=== PATIENT | female | born 1935 | race Caucasian/White ===

== ENCOUNTER 2020-03-18 11:10 | Inpatient (IN) | payer MEDICARE, OTHER ==
[~2020-03-18] VITALS: Ht 160 cm; Wt 81.6 kg
--- NOTE | 2020-03-18 11:50 | NUR ---
patient came in to the er c/o chest pain and dizziness since last night. On room air, breathing evenly and unlabored. Connected to the monitor and pulse ox. kept comfortable, will continue to monitor accordingly.
[2020-03-18] MEDS ORDERED: MORPHINE SULFATE INJ 2 MG/ML DISP.SYRIN ONE (12:59)
[2020-03-18] MEDS ORDERED: ONDANSETRON HCL/PF 4 MG/2 ML VIAL ONE (12:59)
[2020-03-18] MEDS ORDERED: ONDANSETRON HCL/PF 4 MG/2 ML VIAL IVP ONE (13:00)
[2020-03-18] MEDS ORDERED: MORPHINE SULFATE INJ 2 MG/ML DISP.SYRIN IV ONE (13:00)
[2020-03-18] MEDS ORDERED: IV NS 0.9% 1,000 ML BAG IV ONE (13:00)
[2020-03-18 13:14] LABS: BASOPHILS # (AUTO) 0.1 /CMM (0.0-0.2); BASOPHILS % (AUTO) 0.7 % (0.0-2.0); EOSINOPHILS % (AUTO) 3.2 % (0.0-6.0); HEMATOCRIT 42 % (33-45); HEMOGLOBIN 13.8 g/dL (11.5-14.8); LYMPHOCYTES # (AUTO) 2.1 /CMM (0.8-4.8); LYMPHOCYTES % (AUTO) 24.9 % (20.0-44.0); MEAN CORPUSCULAR HGB CONC 33 g/dl (31.0-36.0); MEAN CORPUSCULAR VOLUME 85 fL (82-100); MONOCYTES # (AUTO) 0.8 /CMM (0.1-1.30); MONOCYTES % (AUTO) 9.5 % (2.0-12.0); NEUTROPHILS # (AUTO) 5.2 /CMM (1.8-8.9); NEUTROPHILS % (AUTO) 61.7 % (43.0-81.0); PLATELET COUNT (AUTO) 267 /CMM (150-450); RED BLOOD CELL COUNT(AUTO) 4.91 MIL/uL (4.0-5.2); WHITE BLOOD COUNT (AUTO) 8.4 K/uL (4.3-11.0)
[2020-03-18 13:18] LABS: CALCIUM, SERUM 9.3 mg/dL (8.5-10.1); CARBON DIOXIDE 31 mmol/L (21-32); CHLORIDE 102 mmol/L (98-107); CREATININE 1.2 mg/dL (0.6-1.3); GLUCOSE 86 mg/dL (74-106); POTASSIUM 3.6 mmol/L (3.5-5.1); SODIUM SERUM 139 mmol/L (136-145); UREA NITROGEN, BLOOD 24 mg/dL (7-18)
[2020-03-18 13:43] LABS: ALBUMIN 3.7 g/dL (3.4-5.0); BILIRUBIN,DIRECT 0.1 mg/dL (0.0-0.2); BILIRUBIN,TOTAL 0.4 mg/dL (0.2-1.0); TOTAL PROTEIN, SERUM 7.2 g/dL (6.4-8.2)
--- NOTE | 2020-03-18 13:44 | NUR ---
wheeled patient via gurney to ct scan
--- NOTE | 2020-03-18 13:56 | NUR ---
patient came back from ct
--- NOTE | 2020-03-18 13:59 | NUR ---
CALLED NURSING SUP FOR TELE BED.
[2020-03-18] MEDS ORDERED: CLOP75TA15 PO (14:09)
[2020-03-18] MEDS ORDERED: ATOR20TA PO (14:10)
[2020-03-18] MEDS ORDERED: ICOS1CAP PO (14:11)
[2020-03-18] MEDS ORDERED: CARV3.122 PO (14:14)
[2020-03-18] MEDS ORDERED: TRIA1TAB3 PO (14:14)
[2020-03-18] MEDS ORDERED: IRBE150T28 PO (14:14)
--- NOTE | 2020-03-18 14:15 | NUR ---
NURSING SUP GAVE TELE BED 304-1. AKHIL IS THE NURSE.
[2020-03-18] MEDS ORDERED: FAMO-131 PO (14:19)
[2020-03-18] MEDS ORDERED: ASCO-352 PO (14:19)
[2020-03-18] MEDS ORDERED: BISA-79 PO (14:19)
[2020-03-18] MEDS ORDERED: BIOT5000 PO (14:19)
[2020-03-18] MEDS ORDERED: VITA400C71 PO (14:19)
--- NOTE | 2020-03-18 14:19 | NUR ---
report given to Devika DAVIDSON for steffen.
[2020-03-18] MEDS ORDERED: HYDR-4354 PO (14:23)
[2020-03-18] MEDS ORDERED: VITAMIN D PO (14:23)
[2020-03-18] MEDS ORDERED: FOLIC ACID PO (14:27)
[2020-03-18 14:52] VITALS: BP 136/68
[2020-03-18] MEDS ORDERED: MAG HYDROX/AL HYDROX/SIMETH 30 ML UDC PO PRN (15:00)
[2020-03-18] MEDS ORDERED: ACETAMINOPHEN 325 MG TABLET PO PRN (15:00)
[2020-03-18] MEDS ORDERED: ENOXAPARIN SODIUM 40 MG/0.4 ML DISP.SYRIN SQ SCH (15:00)
[2020-03-18] MEDS ORDERED: BISACODYL (5 MG) 5 MG TABLET.DR PO PRN (15:00)
[2020-03-18] MEDS ORDERED: MAGNESIUM HYDROXIDE 30 ML UDC PO PRN (15:00)
[2020-03-18] MEDS ORDERED: ONDANSETRON HCL/PF 4 MG/2 ML VIAL IVP PRN (15:00)
[2020-03-18] MEDS ORDERED: MORPHINE SULFATE INJ 2 MG/ML DISP.SYRIN IV PRN (15:00)
[2020-03-18] MEDS ORDERED: NITROGLYCERIN 0.4 MG/TAB BOTTLE SL PRN (15:00)
[2020-03-18] MEDS ORDERED: HYDROCODONE/APAP 10/325MG TABLET PO PRN (15:00)
[2020-03-18] MEDS ORDERED: Z GUARD REMEDY 2 OZ OINT TP PRN (15:00)
[2020-03-18] MEDS ORDERED: ZOLPIDEM TARTRATE 5 MG TABLET PO PRN (15:00)
--- NOTE | 2020-03-18 15:12 | NUR ---
wheeled patient via gurney accompanied by RN and emt in no distress, RN at bedside to assume care.
[2020-03-18] MEDS ORDERED: ENOXAPARIN SODIUM 30 MG/0.3 ML DISP.SYRIN SQ SCH (15:30)
[2020-03-18] MEDS: CARVEDILOL 3.125 MG TABLET PO SCH (16:27)
[2020-03-18] MEDS: IV NS 0.9% 1,000 ML IV PRN (16:28)
--- NOTE | 2020-03-18 18:14 | NUR ---
WIND FIELD MANAGER END OF SHIFT SUMMARY NOTE PT ARRIVED TO TELE UNIT IN STABLE CONDITION VIA GURNEY. PT ABLE TO AMBULATE FROM GURNEY TO BED. PT IS A/OX3, AFEBRILE. FARSI SPEAKING. OBTAINED VERBAL CONSENT W/ 2RNS WITH SON LEONID FOR CTCA. CONSENT PLACED IN CHART. RESPIRATIONS ARE EVEN AND UNLABORED, NOT IN ANY ACUTE DISTRESS NOTED. PT DENIES ANY CHEST PAIN AT THIS TIME, NO C/O SOB. ABDOMEN IS SOFT AND NONDISTENDED, BOWEL SOUNDS ARE PRESENT IN ALL 4 QUADRANTS UPON AUSCULTATION. TOLERATING PO W/ NO N/V. PIV TO LAC 18G INTACT, NO INFILTRATION NOTED, DRESSING CDI. SKIN CDI. ALL NEEDS MET AND RENDERED. SAFETY MEASURES ARE IN PLACE. CALL LIGHT IS LEFT WITHIN REACH. WILL MONITOR AND CONTINUE POC.
[2020-03-18 20:00] VITALS: BP 125/58
--- NOTE | 2020-03-18 20:00 | NUR ---
PICK PULLING MACHINE TENDER: RECEIVED REPORT FROM AKHIL DAVIDSON. PT CALM AND COMFORTABLE, PLEASANT, PT A/O X3 FARSI SPEAKING, ON RA RESPIRATIONS EVEN AND UNLABORED. IV ACCESS ON LEFT FA G 18 PATENT AND FLUSHING WELL, INFUSING WITH NS AT 100ML/HR. PT TELE MONITORING SINUS CESAR HR 56. PT DENIES ANY CHEST PAIN OR DISCOMFORT AT THIS TIME. PT FOR CT ANGIO 3D IN AM, CONSENT SECURED BY DIRK RN. ALL COMMUNICATIONS TRANSLATED IN FARSI WITH HELP OF PT'S SON LEONID. SAFETY PRECAUTIONS FOR FALL INITIATED, CALL LIGHT IN REACH, WILL CONTINUE MONITORING PT.
--- NOTE | 2020-03-18 21:22 | NUR ---
RN NOTES: CONTACTED PT'S SON SALEEM [phone], EXPLAINED TO SON ABOUT PLAN OF CARE, MADE AWARE OF PT BRING NPO P MN IN PREP FOR CT ANGIO IN AM, ALSO MEDICATION TO BE TAKEN TONIGHT. SON EXPLAINED TO PT USING FARSI.
[2020-03-18] MEDS ORDERED: ATORVASTATIN 10 MG TABLET PO SCH (22:00)
[2020-03-19] VITALS: BP 106/45
[2020-03-19] MEDS: IV NS 0.9% 1,000 ML IV PRN ×2 (00:44→11:20)
[2020-03-19 04:27] VITALS: BP 155/77
--- NOTE | 2020-03-19 06:13 | NUR ---
rn notes: contrast questionnaires completed, with help of pt's son. witnessed by rn stephie.
[2020-03-19 06:32] LABS: BASOPHILS # (AUTO) 0.1 /CMM (0.0-0.2); HEMATOCRIT 39 % (33-45); HEMOGLOBIN 12.6 g/dL (11.5-14.8); LYMPHOCYTES # (AUTO) 2.3 /CMM (0.8-4.8); LYMPHOCYTES % (AUTO) 36.9 % (20.0-44.0); MEAN CORPUSCULAR HGB CONC 33 g/dl (31.0-36.0); MEAN CORPUSCULAR VOLUME 87 fL (82-100); MONOCYTES # (AUTO) 0.6 /CMM (0.1-1.30); MONOCYTES % (AUTO) 9.5 % (2.0-12.0); NEUTROPHILS # (AUTO) 2.9 /CMM (1.8-8.9); NEUTROPHILS % (AUTO) 46.6 % (43.0-81.0); PLATELET COUNT (AUTO) 227 /CMM (150-450); RED BLOOD CELL COUNT(AUTO) 4.47 MIL/uL (4.0-5.2); WHITE BLOOD COUNT (AUTO) 6.3 K/uL (4.3-11.0)
[2020-03-19 06:35] VITALS: BP 155/77
[2020-03-19 07:27] LABS: CALCIUM, SERUM 8.4 mg/dL (8.5-10.1); CREATININE 1.1 mg/dL (0.6-1.3); MAGNESIUM 2.1 mg/dL (1.8-2.4); PHOSPHORUS 4.7 mg/dL (2.5-4.9); POTASSIUM 3.6 mmol/L (3.5-5.1)
[2020-03-19 07:31] LABS: THYROID STIMULATING HORMONE 1.307 uIU/mL (0.358-3.74)
--- NOTE | 2020-03-19 07:32 | NUR ---
end of shift report: pt denies any chest pain or discomfort throughout the shift. pt able to sleep approximately 8hrs without help of any sleeping medication. all due meds administered. pt npo started mn, for ct angio heart, consent secured attached in chart. iv contrast questionnaire completed with help of son. pt continent, ambulates with assistance. remains tele monitoring sinus aleisha hr 58. iv access remains patent and flushing well, infusing with ns at 100ml/hr, no s/s of iv infiltration noted. vs remains stable, needs attended. safety precautions for fall remains engaged, call light in reach, will endorse to day rn for continuity of care.
[2020-03-19 08:00] VITALS: BP 158/67
[2020-03-19] MEDS ORDERED: MAXZIDE TABLET 1 UDTAB TABLET PO SCH (09:00)
[2020-03-19] MEDS ORDERED: IRBESARTAN (150MG) 150 MG TABLET PO SCH (09:00)
[2020-03-19] MEDS ORDERED: CLOPIDOGREL BISULFATE 75 MG TABLET PO SCH (09:00)
[2020-03-19] MEDS ORDERED: FAMOTIDINE (20 MG) 20 MG TABLET PO SCH (09:00)
[2020-03-19] MEDS ORDERED: ASPIRIN EC 81 MG TABLET.DR PO SCH (09:00)
[2020-03-19] MEDS ORDERED: ASCORBIC ACID 500 MG TABLET PO SCH (09:00)
[2020-03-19] MEDS: CARVEDILOL 3.125 MG TABLET PO SCH (09:41)
[2020-03-19] MEDS ORDERED: IV NS 0.9% 250 ML IV ONE (12:02)
[2020-03-19] MEDS ORDERED: IOHEXOL-350 100 ML VIAL IV ONE ×2 (12:02→12:26)
[2020-03-19 12:25] VITALS: BP 159/67
--- NOTE | 2020-03-19 12:27 | NUR ---
ICU/RN: Pt s/p CTA; pt tolerated procedure well. No AE noted. No metoprolol administered dt HR within parameters. Administered nitro x1 SL. Post CTA VS: 143/67, HR 63, sinus rhythm on tele. Transferred back to room in stable condition. Report given to RN for RENAN.
[2020-03-19] MEDS ORDERED: METOPROLOL TARTRATE INJ 5 MG/5 ML AMPUL IVP ONE (12:30)
[2020-03-19] MEDS ORDERED: NITROGLYCERIN 0.4 MG/TAB BOTTLE SL ONE (12:30)
[2020-03-19] MEDS ORDERED: IV NS 0.9% 500 ML IV PRN (12:30)
--- NOTE | 2020-03-19 12:43 | NUR ---
MS RN NOTES-- PT CAME BACK FROM CTA IN STABLE CONDITION. DIET RESUMED.
--- NOTE | 2020-03-19 15:00 | NUR ---
MS RN NOTES-- RECEIVED AN "OKAY" TO D/C HOME PER DR. RAGSDALE.
--- NOTE | 2020-03-19 15:44 | NUR ---
MS BRAZING MACHINE FEEDER NOTE PT DISCHARGED TO HOME IN MEDICALLY STABLE CONDITION, P/U BY SON LEONID. PT IS A/OX3, AFEBRILE. RESPIRATIONS ARE EVEN AND UNLABORED, NOT IN ANY ACUTE DISTRESS NOTED. PT DENIES ANY CHEST PAIN, SOB, N/V. ABDOMEN IS SOFT AND NONDISTENDED, BOWEL SOUNDS ARE PRESENT IN ALL 4 QUADRANTS UPON AUSCULTATION. TOLERATES PO. VOIDS. X1BM DURING SHIFT. SKIN CDI. EXPLAINED DISCHARGE PAPERWORK TO PT AND SON WITH VERBAL AND WRITTEN UNDERSTANDING. ALL BELONGINGS ACCOUNTED FOR AND SENT HOME WITH PT, INCLUDING 2 YELLOW RINGS, WATCH, CELL PHONE, BLUE PURSE AND CANE. ACCOMPANIED PT VIA W/C TO PERSONAL VEHICLE IN STABLE CONDITION.
[2020-03-20] MEDS ORDERED: LOSARTAN POTASSIUM 50 MG TABLET PO SCH (09:00)
== END 2020-03-19 15:48 | disposition home or self-care (01) | DRG 392 ==
LOC: ER 11:10 → TELE 14:24 → MED 03-19 08:47
DX: K21.9 Gastro-esophageal reflux disease without esophagitis (principal); I25.10 Atherosclerotic heart disease of native coronary artery without angina pectoris; I10 Essential (primary) hypertension; K29.70 Gastritis, unspecified, without bleeding; K42.9 Umbilical hernia without obstruction or gangrene; M19.90 Unspecified osteoarthritis, unspecified site; Z95.5 Presence of coronary angioplasty implant and graft
CPT/HCPCS: 36415; 71045-TC; 75574; 80048-TC; 80061-TC; 80076-TC; 83690-TC; 83735-TC; 83880; 84100-TC; 84443-TC; 84484-TC; 85025-TC; 85610-TC; 85730-TC; 87081-TC; 93307-TC; G0378; J1650; J2270; J2405; J7030; J7050; Q9967